=== PATIENT | female | born 1965 | race Caucasian/White ===

== ENCOUNTER 2024-02-02 15:06 | Emergency (ER) | payer OTHER, SELFPAY ==
[2024-02-02 15:15] VITALS: BP 137/75; PULSE 90; RESP 20; TEMP 36.3; O2SAT 98
--- NOTE | 2024-02-02 15:23 | ECG_ITS ---
Test Date: 2024-02-02 15:21:34 Measurements Intervals [place] Rate: 73 P: 64 VT: 128 QRS: 25 QRSD: 98 T: 31 QT: 365 QTc: 405 Interpretive Statements SINUS RHYTHM INCOMPLETE RIGHT BUNDLE BRANCH BLOCK BASELINE ARTIFACT- I, II, III, AVR, AVL, AVF BORDERLINE ECG No previous ECG available for comparison Electronically Signed On 02-02-2024 20:26:01 CDT by Jc Miller D.O.
--- NOTE | 2024-02-02 15:23 | ED.CHESTPAIN ---
HPI - Chest Pain General Chief Complaint: Chest Pain Stated Complaint: Chest pains Time Seen by Provider: 02/02/24 15:23 Source: patient, RN notes reviewed and old records reviewed Mode of arrival: ambulatory Limitations: no limitations History of Present Illness HPI narrative: 58 [facility] of mid chest pain which goes to her left chest which started about 1.5 hours ago while at work. Patient reports that she told her boss and she laid down in her car during her lunch break and pain didn't resolve. 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 Patient denies any nausea or vomiting, no diaphoresis, denies any shortness of breath. Patient reports initially she had the mid sternal pain in her chest that felt it went all the way thru to her back now radiating to left chest. MD complaint: chest pain and other (pressure) Onset (ago): hour(s) (1.5 hours prior to arrival) Prior episodes: No Pain location: substernal and left chest Pain scale (0-10): 8 Quality: other (pressure) Treatment prior to arrival: none Related Data Home Medications Medication Instructions Recorded Confirmed hydroxyzine HCl 25 mg tablet 25 mg PO TID PRN Anxiety 02/02/24 02/02/24 sumatriptan succinate 25 mg tablet 25 mg PO DAILY PRN Migraine 02/02/24 02/02/24 Headache Allergies Allergy/AdvReac Type Severity Reaction Status Date / Time No Known Allergies Allergy Verified 02/02/24 15:25 Review of Systems Review of Systems: CONSTITUTIONAL: Denies fever, chills, or sweats. EYES: Denies visual changes, redness, or discharge. ENT: Denies rhinorrhea, congestion, sore throat, or otalgia. CARDIOVASCULAR: Report substernal chest pain and pain to left side of chest,denies palpitations, or edema. RESPIRATORY: Denies cough or dyspnea. GASTROINTESTINAL: Denies abdominal pain, nausea, vomiting, or diarrhea. GENITOURINARY: Denies dysuria or hematuria. SKIN: Denies rash or itching. MUSCULOSKELETAL: Denies back pain, joint pain, or myalgia. NEUROLOGIC: Denies headache, numbness, or weakness. PSYCHIATRIC: Positive for anxiety or depression. All systems reviewed & are unremarkable except as noted in HPI and below PMFSH Past Medical History Medical History (Updated 02/04/24 @ 08:17 by Karen Escalona NP) Anxiety Diverticulitis Migraines, neuralgic Social History Social History (Updated 02/04/24 @ 08:07 by Karen Escalona NP) Smoking status: Never smoker Alcohol intake: current Alcohol use details: rare Substance use type: does not use Living arrangements: with family Gender identity (if verbalized by the patient): Female Comments At time of signature, agree with nursing past medical, surgical, social and family history. There is no relevant family history pertinent to the presenting complaint Exam Narrative: GENERAL: Well-appearing, well-nourished, and in no present acute distress. HEAD: Normocephalic, atraumatic. EYES: PERRLA and EOMI. ENT: Nares clear, no rhinorrhea or epistaxis. Mucous membranes moist.TM's normal no throat redness or swelling NECK: Supple.no lymphadenopathy CHEST: Clear to auscultation. No respiratory distress. no cough SAO2 98% on room air HEART: Regular rate and rhythm. No murmur heard. Normal peripheral pulses.reports midsternal and left sided chest pain no associated with nausea or vomiting or diaphoresis ABDOMEN: Soft, nontender, nondistended, normal active bowel sounds. EXTREMITIES: Normal range of motion. No edema. SKIN: Warm, dry, no rash. NEURO: No focal deficits. Alert and oriented x3. Course Course Emergency Course: Patient is aware of diagnosis, understands and agrees to treatment plan.? Anticipatory guidance given.? Patient agrees to follow-up as directed and is aware of reasons to seek care at the emergency department. Portions of this
[2024-02-02 15:26] VITALS: BP 137/75; PULSE 90; RESP 20; TEMP 36.3; O2SAT 98
== END 2024-02-02 16:20 | disposition short-term general hospital (02) ==
LOC: EXPBETH 15:13
PROVIDERS: Emergency Provider Registered Nurse; PCP Nurse Practitioner Family
DX: R07.9 Chest pain, unspecified (principal); F41.9 Anxiety disorder, unspecified
CPT/HCPCS: 93005; 99213; G0463

== ENCOUNTER 2024-06-07 09:44 | Emergency (ER) | payer OTHER, SELFPAY ==
[2024-06-07 09:49] VITALS: BP 119/58; PULSE 87; RESP 16; TEMP 36.2; O2SAT 100
--- NOTE | 2024-06-07 10:18 | ED_ITS ---
HPI - URI/Sore Throat General Chief Complaint: Upper Respiratory Infection Stated Complaint: Vomiting/Headache Time Seen by Provider: 06/07/24 10:20 Source: patient, RN notes reviewed and old records reviewed Mode of arrival: ambulatory Limitations: no limitations History of Present Illness HPI Narrative: 58 year old female who [facility] with complaints of yesterday feeling drained, feeling cold with some nausea and vomiting and also headache also. Patient reports that she went to work this morning and vomited twice at work and was sent home. Patient reports that she has generalized body aches, headaches today also along with nausea and vomiting. Patient reports that her daughter was recently diagnosed with COVID. MD elicited complaint: cough and sore throat Onset (ago): day(s) (day 2 of symptoms) Severity: moderate Pain scale (0-10): 6 Able to tolerate fluids by mouth: Yes Treatments prior to arrival: none Related Data Home Medications Medication Instructions Recorded Confirmed sumatriptan succinate 25 mg tablet 25 mg PO DAILY PRN Migraine 02/02/24 02/02/24 Headache Allergies Allergy/AdvReac Type Severity Reaction Status Date / Time No Known Allergies Allergy Verified 06/07/24 09:55 Review of Systems Review of Systems: CONSTITUTIONAL: Reports malaise, chills, sweats, no known fevers EYES: Denies visual changes, redness, or discharge. ENT: Reports no rhinorrhea, congestion, sinus pain, otalgia and no sore throat. CARDIOVASCULAR: Denies chest pain, palpitations, or edema. RESPIRATORY: Reports no cough.? Denies dyspnea. GASTROINTESTINAL: Denies abdominal pain,positive for nausea, vomiting,no diarrhea SKIN: Denies rash or itching. MUSCULOSKELETAL: positive myalgia. NEUROLOGIC:Positive for headache. All systems reviewed & are unremarkable except as noted in HPI and below PMFSH Past Medical History Medical History Anxiety Diverticulitis Migraines, neuralgic Social History Social History Smoking status: Never smoker Alcohol intake: current Alcohol use details: rare Substance use type: does not use Living arrangements: with family Gender identity (if verbalized by the patient): Female Comments At time of signature, agree with nursing past medical, surgical, social and family history. There is no relevant family history pertinent to the presenting complaint Exam Narrative: GENERAL: ill appearing, well-nourished, and in no acute distress. HEAD: Normocephalic EYES: PERRLA, conjunctivae clear ENT: Nares clear, turbinates edematous and erythematous, clear discharge. Mucous membranes moist. TM pearly saeed with dull light reflex bilaterally; no tragal tenderness. Oropharynx erythematous without lesions. Tonsils not enlarged and without exudate, no drooling, no hoarseness, no trismus, uvula midline.post nasal drainage. NECK: Supple. No lymphadenopathy CHEST: Clear to auscultation, breath sounds equal. No wheezing, rhonchi, rales, or stridor. No respiratory distress, speaks in full sentences.SAO2 100% on room air HEART: Regular rate and rhythm. No murmur heard. SKIN: Warm, dry, no rash. NEURO: Alert and oriented x3. PSYCH: Normal mood and affect Course Course Emergency Course: Patient is aware of diagnosis, understands and agrees to treatment plan.? Anticipatory guidance given.? Patient agrees to follow-up as directed and is aware of reasons to seek care at the emergency department. Portions of this record may have been created with voice recognition software Level of Care: Express Care Visit Vital Signs Vital signs: Vital Signs Temperature 36.2 C L 06/07/24 09:49 Pulse Rate 87 06/07/24 09:49 Respiratory Rate 16 06/07/24 09:49 Blood Pressure 119/58 L 06/07/24 09:49 Pulse Oximetry 100 06/07/24 09:49 Oxygen Delivery Room Air 06/07/24 09:49 Temperature 36.2 C L 06/07/24 09:49 Pulse Rate 87 06/07/24 09:49 Respiratory Rate 16 06/07/24 09:49 Blood Pressure 119/58 L 06/07/24 09:49 Pulse Oximetry 100 06/07/24 09:49 Oxygen Delivery Room Air 06/07/24 09:49 Reviewed MDM - URI/Sore Throat MDM Narrative Medical decision making narrative: Differential diagnosis considered: Carmichael virus, strep pharyngitis, allergic rhinitis, upper respiratory tract infection, sinusitis, rhinosinusitis, nasopharyngitis. viral pharyngitis, otitis media, otitis externa, pneumonia, bronchitis, viral cough syndrome, viral syndrome, and influenza.? Exam findings show no acute concerns or changes; patient is non-toxic appearing and is in no distress.? Patient is appropriate for outpatient treatment and follow-up. Differential Diagnosis Differential diagnosis: Likely upper respiratory infection, sinusitis, viral infection, influenza, pharyngitis and other (COVID,Nausea and vomiting) Medical Records Attestation: I reviewed the patient's medical records. Lab Data Attestation: I reviewed the patient's lab results. Lab results narrative: COVID antigen positive, Influenza A negative, Influenza B negative Labs: Lab Results 06/07/24 Range/Units 10:20 POC Influenza A Ag Negative (Negative) POC Influenza B Ag Negative (Negative) POC SARS CoV-2 Ag Positive (Negative) Critical Care Time Critical Care Time Critical Care Time: No Discharge Plan Discharge Clinical Impression: COVID-19 Patient Disposition: Home, Self-Care Condition: Stable Instructions: Antibiotic Form, How to Recover from COVID-19 at Home (ED) Additional Instructions: Increase fluids especially juices and water [id number] cough and cold medicine of your choice for your symptoms Zyrtec Claritin or Adele Tylenol or ibuprofen for any fever or pain heat to the face 20-30 minutes 4-6 times a day for pain Salt water gargles, throat lozenges or throat sprays as desired If your symptoms persist, change or worsen significantly before you can contact your personal physician then please, without delay, go to the emergency department for further evaluation. Follow-up with PCP in 7-10 days or sooner if needed COVID-19 DISCHARGE The following recommendations have been made by the CDC and local Health [facility] ents, regarding COVID-19: Those individuals with mild cases of COVID-19 can generally be discontinued from isolation, average 5days AFTER the onset of symptoms AND the resolution of fever for 24hrs (without the use of fever-reducing medications) Those individuals who were asymptomatic, and tested positive, are discontinued from isolation 10 days AFTER their first positive COVID-19 test Those individuals with SEVERE to CRITICAL illness or immunocompromised diseases may require up to 20 days of home isolation or hospitalization Majority of mild to moderate cases can be treated at home, without hospitalization or prescription medications You do not need a negative test result to return to work/school, assuming the above recommendations have been met and you are not symptomatic. At this time, return to work/school notes will not be provided. Guidelines from the local Health Department, CDC, and workplace are expected to be followed. All individuals in the household need to remained quarantined for up to 14 days if asymptomatic OR 10 days after the start of symptoms. Everyone in the home DOES NOT require testing, they are presumed positive and should quarantine as directed. Treating symptoms for mild to moderate cases may include: Tylenol, Flonase/nasal spray, OTC cold/flu medications recommended from your provider or any necessary prescription medications provided at your visit or from your PCP IF YOU TESTED NEGATIVE If you are symptomatic with reason to believe you have COVID-19, there is a high possibility your rapid test may not have detected the virus. Rapid testing is dependent on timing and viral load and may have a false- negative reading You should follow appropriate guidelines regarding quarantine, hand washing, mask wearing, and social distancing You may be sent for PCR testing as an outpatient to the [facility] site Common Adult Symptoms: Fever/chills Cough Shortness of breath Fatigue, muscle aches Headache Loss of taste/smell Sore throat, congestion, runny nose GI symptoms (nausea, vomiting, diarrhea) Common Pediatric Symptoms Cough Fever GI symptoms (diarrhea, upset stomach, nausea, vomiting) Symptoms may differ in severity however, most cases do not require hospitalization. WHEN TO SEEK ER EVALUATION/TREATMENT Severe/persistent shortness of breath or difficulty breathing Elevated, persistent fevers without resolution with fever-reducing medications Chest pain Extreme fatigue/lethargy Complications of pre-existing disease Prescriptions: New ondansetron 4 mg tablet,disintegrating 4 mg PO Q6H PRN (Reason: nausea and vomiting) Qty: 14 0RF No Action sumatriptan succinate 25 mg tablet 25 mg PO DAILY PRN (Reason: Migraine Headache) Follow-up/Referrals: Aisha,Lynn Barr APN [Primary Care Provider] - Stand Alone Forms: Work/School Release IP Time of Disposition: 10:42 Quality [place] Coma Scale Eyes: Open Verbal: Oriented and Alert Motor: Follows Commands [place] Coma Total Score: 15
[2024-06-07 10:22] LABS: EDCOVIDSCREEN Positive (Negative); EDINFLUASCREEN Negative (Negative); EDINFLUBSCREEN Negative (Negative)
== END 2024-06-07 10:50 | disposition home or self-care (01) ==
PROVIDERS: Emergency Provider Registered Nurse; PCP Nurse Practitioner Family
DX: U07.1 COVID-19 (principal)
CPT/HCPCS: 87426; 87804; 99213; G0463